=== PATIENT | female | born 2000 | race Two or more races ===

== ENCOUNTER 2022-03-13 08:08 | Outpatient (REF) | payer OTHER, SELFPAY ==
[2022-03-13 09:13] LABS: Hematocrit 38.3 % (37.0-47.0); Mean Corpuscular HGB Conc 33.9 g/dl (31.0-35.0); Mean Corpuscular Volume 91.2 fL (80.0-98.0); Mean Platelet Volume 8.8 fL (9.4-12.3); Platelet Count 317 X10*3/uL (160-400); Red Cell Distribution Width 12.5 % (11.0-16.0); White Blood Count 8.2 X10*3/uL (4.8-10.8)
[2022-03-13 09:53] LABS: Thyroid Stimulating Hormone 0.81 uIU/mL (0.32-4.0)
[2022-03-13 09:55] LABS: HBsAGNum1 0.22 S/CO (0.00-0.99); HIV AB/AG Nonreactive (Nonreactive); HIV Num 1 0.06 S/CO (0.00-0.99); Hepatitis B Surface Antigen Negative (Negative); ~HepC Num1 0.06 S/CO (0.00-0.79); ~Hepatitis C Antibody Nonreactive (Nonreactive)
[2022-03-14 07:06] LABS: Syphilis Screen Nonreactive (Nonreactive)
== END 2022-03-13 08:09 | disposition home or self-care (01) ==
LOC: HO.LAB 08:08
PROVIDERS: Visit Provider Advanced Practice Midwife
DX: Z30.09 Encounter for other general counseling and advice on contraception (principal); Z86.2 Personal history of diseases of the blood and blood-forming organs and certain disorders involving the immune mechanism; Z87.42 Personal history of other diseases of the female genital tract
CPT/HCPCS: 36415; 84443; 85027; 86780; 86803; 87340; 87389

== ENCOUNTER 2022-04-24 11:37 | Outpatient (REF) | payer OTHER, SELFPAY ==
[2022-04-25 02:35] LABS: CT PCR NOT DETECTED (Not Detect.); NG PCR NOT DETECTED (Not Detect.)
[2022-04-25 13:07] LABS: BV Int Neg Control Negative (Negative); BV Int Pos Control Positive (Positive)
== END 2022-04-24 11:38 | disposition home or self-care (01) ==
LOC: HO.LAB 11:37
PROVIDERS: Visit Provider Advanced Practice Midwife
DX: Z01.419 Encounter for gynecological examination (general) (routine) without abnormal findings (principal); Z11.3 Encounter for screening for infections with a predominantly sexual mode of transmission
CPT/HCPCS: 87480; 87491; 87510; 87591; 87660; 88142

== ENCOUNTER 2022-07-03 07:34 | Outpatient (REF) | payer OTHER, SELFPAY ==
[2022-07-03 08:15] LABS: Hematocrit 40.1 % (37.0-47.0); Hemoglobin 13.2 g/dl (12.0-16.0); Mean Corpuscular HGB Conc 32.9 g/dl (31.0-35.0); Mean Corpuscular Hemoglobin 30.5 pg (27.0-33.0); Mean Corpuscular Volume 92.6 fL (80.0-98.0); Mean Platelet Volume 8.9 fL (9.4-12.3); Platelet Count 314 X10*3/uL (160-400); Red Blood Count 4.33 X10*6/uL (4.20-5.50); White Blood Count 4.5 X10*3/uL (4.8-10.8)
[2022-07-03 08:40] LABS: Alanine Aminotransferase 11 U/L (0-31); Albumin Level 4.3 g/dL (3.5-5.0); Alkaline Phosphatase 42 U/L (39-117); Anion Gap 14 (12-20); Aspartate Amino Transferase 16 U/L (5-31); Bilirubin Total 0.3 mg/dL (0.0-1.0); Blood Urea Nitrogen 13 mg/dL (9-16); Calcium 9.4 mg/dL (8.4-10.2); Carbon Dioxide 24 mmol/L (22-29); Chloride 106 mmol/L (96-108); Cholesterol 262 mg/dL; Estimated Glomerular Filt Rate > 60; Glucose Fasting 79 mg/dL (60-99); HDL Cholesterol 79 mg/dL; LDL Cholesterol Calculated 165 mg/dl; Potassium 4.3 mmol/L (3.3-5.1); Sodium 140 mmol/L (135-145); Total Protein 7.8 g/dL (6.5-8.0); Triglycerides 94 mg/dL
[2022-07-03 09:03] LABS: TSH reflex Free T4 0.74 uIU/mL (0.32-4.0)
== END 2022-07-03 07:35 | disposition home or self-care (01) ==
LOC: HO.LAB 07:34
PROVIDERS: PCP Hospitalist; Visit Provider Hospitalist
DX: Z00.00 Encounter for general adult medical examination without abnormal findings (principal)
CPT/HCPCS: 36415; 80053; 80061; 84443; 85027

== ENCOUNTER 2023-05-07 14:01 | Outpatient (AMB) | payer OTHER, SELFPAY ==
--- NOTE | 2023-05-07 14:02 | MHC.OFFVIS ---
Intake Intake Visit Reasons: TV Discuss some health concerns Intake Note: cell # [phone] Allergies No Known Allergies Allergy (Verified 05/07/23 14:02) Medication List - Last Reconciled 05/07/23 by Nargis Mccoy CNM desogestrel-ethinyl estradiol 0.15-0.03 mg (Apri) 1 tab PO DAILY sumatriptan succinate take 1 tab at onset of headache; if no relief may repeat 1 tab after at least 2 hrs; max = 4 tabs/24 hr PO Is last menstrual period known: Yes Last menstrual period: 05/07/23 HPI TV Discuss some health concerns HPI Details This is a tele visit to discuss concerns that the patient has. 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 He has never had an outbreak as far as he knows ever and she has never had 1 either they were together this weekend in [place] and they decided not to be intimate at all in were very careful and they both been doing reading up on it and he discussed this with her as soon as he got the results. And he suggested that she get tested as well. She has never had an outbreak. This discussion was to do Education about HSV and its transmission and the usual patterns of transmission which often include innocent contacts that are asymptomatic and therefore many people do not even know that they have had it and they may have had it since they have been children. Discussed that it is believed to be more easily transmissible when some the does have an outbreak or lesion or at least the prodrome symptoms of 1. Discussed that it can be emotionally challenging but is something that can come and go and can be managed. The patient would like to get serum testing and I also offered her other STI serum testing while she is at it just to get everything done so she and her partner can no each other status going forward. Discussed that even if she is also positive for HSV to we will never know who had it 1st. Discussed that 1 of the main implications for testing would be if somebody did have outbreaks and they were they would be offered medication to suppress an outbreak towards term. The patient would like to go for testing today as she works here and is in the area today so I am ordering the testing and we will have a visit afterwards if she needs follow-up after the results. [facility] Medical History Seizures Surgical History Hx of wisdom tooth extraction Family History Maternal Aunt Breast cancer Paternal Grandfather Prostate cancer Diabetes Maternal Grandmother Sleep apnea Social History Household Members: Family Housing: House Are you a primary laboratory animal care veterinarian to a significant other at home: No Do you presently have visiting nurse or other home services: No 75 years or older and lives alone: No Alcohol intake: current Alcohol intake frequency: holidays/special occasions only Patient Tobacco Use Status: Never used Tobacco e-Cigarette/Vaping Use: Former Use Second Hand Smoke Exposure: No service: No Current occupational status: employed Current occupation: [employer] with [employer] Current occupational exposures/hazards: No Cognitive needs: No Hearing needs: No Vision needs: No Female Reproductive History Menstrual Age of Menarche: 12 Date of last menstrual period: 05/07/23 Assessment & Plan Assessment & Plan (1) Screen for sexually transmitted diseases: Code(s): Z11.3 - Encounter for screening for infections with a predominantly sexual mode of transmission Orders: Orders Hepatitis B Surface Antigen Today Z11.3 - Encounter for screening for infections with a predominantly sexual mode of transmission Hepatitis C Antibody Today Z11.3 - Encounter for screening for infections with a predominantly sexual mode of transmission HIV Ab/Ag Today Z11.3 - Encounter for screening for infections with a predominantly sexual mode of transmission Syphilis Screen Today Z11.3 - Encounter for screening for infections with a predominantly sexual mode of transmission Herpes Simplex Virus Ab IgG Today Z11.3 - Encounter for screening for infections with a predominantly sexual mode of transmission Telehealth Telehealth Location of provider rendering services: practice address Location of patient: other Patient Identification confirmed using: Name, : Yes Telehealth method: video Patient verbally consented to treatment: Yes Patient verbally consented to billing insurance company: Yes Patient informed of any privacy concerns related to visit: Yes Minutes spent on Phone/Video with Pt.: 13 (5; 13;12=30) Coding Level of Care Code Tele Est Pt Level 3 (97692) Diagnoses Screen for sexually transmitted diseases Z11.3 Time Spent (min) 30 Comment 5/chart review ;13 tele visit; 12 charting and ordering
== END 2023-05-07 14:36 | disposition home or self-care (01) ==
LOC: HO.HWSM 14:01
PROVIDERS: PCP Hospitalist; Visit Provider Advanced Practice Midwife
DX: Z11.3 Encounter for screening for infections with a predominantly sexual mode of transmission (principal)
CPT/HCPCS: 99213

== ENCOUNTER 2023-05-07 14:01 | Outpatient (REF) | payer OTHER, SELFPAY ==
[2023-05-08 04:31] LABS: Syphilis Screen Nonreactive (Nonreactive)
[2023-05-08 04:54] LABS: HBsAGNum1 0.27 S/CO (0.00-0.99); HIV AB/AG Nonreactive (Nonreactive); HIV Num 1 0.06 S/CO (0.00-0.99); Hepatitis B Surface Antigen Negative (Negative); ~HepC Num1 0.06 S/CO (0.00-0.79); ~Hepatitis C Antibody Nonreactive (Nonreactive)
[2023-05-11 13:18] LABS: Herpes Simplex Type 1 IgG 2.36 index; Herpes Simplex Type 2 IgG 0.95 index
== END 2023-05-07 14:02 | disposition home or self-care (01) ==
LOC: HO.LAB 14:01
PROVIDERS: PCP Hospitalist; Visit Provider Advanced Practice Midwife
DX: Z20.2 Contact with and (suspected) exposure to infections with a predominantly sexual mode of transmission (principal); Z79.899 Other long term (current) drug therapy
CPT/HCPCS: 36415; 86695; 86696; 86780; 86803; 87340; 87389